=== PATIENT | male | born 1990 | race Caucasian/White ===

== ENCOUNTER → 2020-10-26 10:45 | Outpatient (CLI) | payer OTHER, SELFPAY ==
--- NOTE | ~2020-10-26 | XR_ITS ---
XR shoulder RT min 2V DATE: 10/26/2020 11:04 INDICATION: Right shoulder pain since fall 2 years ago TECHNIQUE: 4 views COMPARISON: None FINDINGS: No fracture or dislocation, periosteal reaction or bone destruction or abnormal soft tissue calcification. Normal alignment at the acromioclavicular and glenohumeral joints. IMPRESSION: Negative Reviewed, dictated and finalized at location A. IMPRESSION: Negative
== END ==
LOC: EXPTRAD 10:48
PROVIDERS: PCP Nurse Practitioner Family; Visit Provider Nurse Practitioner Family
DX: M25.511 Pain in right shoulder (principal)
CPT/HCPCS: 73030

== ENCOUNTER 2021-07-31 17:13 | Outpatient (CLI) | payer OTHER, SELFPAY ==
--- NOTE | ~2021-07-31 | XR_ITS ---
EXAM: XR ankle RT min 3V DATE: 07/31/2021 17:31 HISTORY: pt rolled rt ankle Friday, swelling to lateral side . COMPARISON: None available. FINDINGS: Normal mineralization. No fracture or dislocation. No lytic or blastic lesion. Joint space s are maintained. No erosion or periosteal change. Mild lateral soft tissue swelling. Ankle joint eff usion. IMPRESSION: No acute osseous finding in the right ankle. Right ankle effusion. Lateral soft tissue sw elling. Reviewed, dictated and finalized at location K. IMPRESSION: No acute osseous finding in the right ankle. Right ankle effusion. Lateral soft tissue swelling.
== END 2021-07-31 17:14 | disposition home or self-care (01) ==
PROVIDERS: PCP Nurse Practitioner Family; Visit Provider Nurse Practitioner Family
DX: M79.89 Other specified soft tissue disorders (principal); M25.471 Effusion, right ankle
CPT/HCPCS: 73610

== ENCOUNTER 2024-12-03 13:55 | Outpatient (CLI) | payer OTHER, SELFPAY ==
--- OUTSIDE RECORDS SUMMARY | 2024-12-03 14:03 | XMS_ITS | Clinical Summary ---
Author Organization [facility] Address [address] [place] [address] Care Team Providers Care Recordak Operator Name Role Phone Federico Mendoza MD Primary Care Provider [phone] Allergies Active Allergy Reactions Criticality Noted Date Comments Codeine Itching Low 12/28/2018 Medications No known medications Active Problems Problem Noted Date Diagnosed Date TBI (traumatic brain injury) 12/28/2018 Closed fracture of scaphoid 07/22/2014 Immunizations Immunization Administration Dates Next Due Influenza, Quadrivalent, Spl it, Preservative Free, Intramuscular 12/28/2018 Surgical History Surgery Date Site/Laterality Comments WRIST SURGERY Medical History Medical History Date Comments Asthma Asthma; Comments : MKS 12/28/2013 - Testicular torsion Family History Medical History Relation Name Comments Diabetes Father Family history of diabetes mellitus - (Added by TW Conv) Cancer Other 1 Family history of Cancer, unknown; Diabetes type II Other 2 Family hist ory of Diabetes mellitus type 2; Arthritis Other 3 Family history of Arthritis; Coronary artery disease Other 4 Fami ly history of Coronary artery disease; Hypertension Other 5 Family history of Hypertension; Relation Name Status Comments Father Other 1 Other 2 Other 3 Other 4 Other 5 Social History Tobacco Use Types Packs/Day Years Used Date Smoking Tobacco: Never Smokeless Tobacco: Never Tobacco Cessation:Counseling Given: No Sex and Gender Information Value Date Recorded Sex Assigned at Not on file Legal Sex Male 8:34 PM [employer] Gender Identity Not on file Sexual Orientation Not on file Obstetrics History Last Filed Vital Signs Vital Sign Reading Time Taken Comments Blood Pressure 124/71 12/30/2018 11:00 AM [employer] Pulse 75 12/30/2018 11:00 AM [employer] Temperature 36.7 C (98.1 F) 12/30/2018 11:00 AM [employer] Respiratory Rate 18 12/30/2018 11:00 AM [employer] Oxygen Saturation 100% 12/30/2018 11:00 AM [employer] Inhaled Oxygen Concentration - - Weight 93 kg (205 lb 0.4 oz) 12/28/2018 6:30 AM [employer] Height 182.9 cm (6') 12/28/2018 6:30 AM [employer] Body Mass Index 27.81 12/28/2018 6:30 AM [employer] Plan of Treatment Not on file Insurance [address] CHOICE PL[facility] Advance Directives For more information, please contact: [phone] * Full Code (Latest Code Status on File) Date Activated Date Inactivated Comments 12/28/2018 6:50 AM 12/30/2018 4:13 PM Care Teams Recordak Operator Relationship Specialty Start Date End Date Federico Mendoza MD [address] [address] PCP - General 12/28/18
--- NOTE | 2024-12-03 14:05 | ECG_ITS ---
Test Date: 2024-12-03 14:16:35 Measurements Intervals [place] Rate: P: 0 OR: 0 QRS: 0 QRSD: 0 T: 0 QT: 0 QTc: 0 Interpretive Statements SINUS RHYTHM MINIMAL Q WAVES- HIGH LATERAL LEADS BASELINE ARTIFACT- V3 BORDERLINE ECG No previous ECG available for comparison Electronically Signed On 12-03-2024 15:33:46 CDT by Froilan Aragon D.O.
== END 2024-12-03 13:56 | disposition home or self-care (01) ==
LOC: ANHCARD 13:58
PROVIDERS: PCP Nurse Practitioner Family; Visit Provider Nurse Practitioner Family
DX: R94.31 Abnormal electrocardiogram [ECG] [EKG] (principal); I10 Essential (primary) hypertension; R00.0 Tachycardia, unspecified
CPT/HCPCS: 93005